=== PATIENT | male | born 1965 | race Caucasian/White ===

== ENCOUNTER 2023-08-14 10:20 | Outpatient (CLI) | payer OTHER, SELFPAY ==
--- NOTE | 2023-08-14 12:55 | WPDPFTINT ---
PFT Procedure Performed PFT Procedure Performed Plethysmography (Lung Vol) Diffusing Cap (DLCO) Flow Vol Loop Spirometry w/o Bronchodil PFT Interpretation Lung volumes were measured using body plethysmography. The reduced expiratory reserve volume is associated with obesity. The decreased total lung capacity may indicate restrictive respiratory disease. Spirometry showed reduced expiratory flow rates and a normal FEV1/FVC ratio of 77%. No post-bronchodilator study was conducted. Lung diffusion capacity is within normal limits at 82% of the predicted value. The flow-volume loop is unremarkable. The current pulmonary function test results could be consistent with severe obesity. Clinical correlation is advised. Impression: Mild restrictive respiratory disease. Lung diffusion capacity is within the normal range.
== END 2023-08-14 10:21 | disposition home or self-care (01) ==
LOC: ANHPFT 10:24
PROVIDERS: Visit Provider Internal Medicine
DX: R06.02 Shortness of breath (principal); R94.2 Abnormal results of pulmonary function studies
CPT/HCPCS: 94375; 94726; 94729